=== PATIENT | male | born 1945 | race Caucasian/White ===

== ENCOUNTER 2024-07-11 23:26 | Inpatient (IN) | payer OTHER, MEDICARE ==
[~2024-07-11] VITALS: Ht 175.3 cm; Wt 100.0 kg
[~2024-07-11 23:26] MED LIST: AMI200T PO; ASPI-612 PO; COR3.125T PO; GEMF600T89 PO; HYDR12.522 PO; LEVA15HF4 IH; MULT-1062 PO; NIAC1CAP PO; NICO-687 TD; NITR0.4T51 SL; OMEG-72 PO; VITA-293 PO; ZES5T PO
[2024-07-12] VITALS (8 sets, daily range): BP systolic 131–143; BP diastolic 68–74; PULSE 77–85; RESP 16–24; TEMP 97.7–98.3; O2SAT 98
[2024-07-12] MEDS: amiodarone/D5 360MG/200ML BAG 200 ML IV SCH (00:54)
[2024-07-12 01:00] LABS: BASOPHILS % (AUTO) 0.2 % (0-1); EOSINOPHILS % (AUTO) 0.2 % (0-6); HEMATOCRIT 31.3 % (42.0-52.0); HEMOGLOBIN 10.4 g/dl (14.0-17.9); LYMPHOCYTES # (AUTO) 1.1 X10'3 (1.1-4.8); LYMPHOCYTES % (AUTO) 9.2 % (21-51); MEAN CORPUSCULAR HEMOGLOBIN 32.5 PG (27.0-31.0); MEAN CORPUSCULAR HGB CONC 33.1 g/dL (33.0-36.5); MEAN PLATELET VOLUME 9.6 FL (7.4-10.4); MONOCYTES # (AUTO) 1.3 X10'3 (0-0.9); MONOCYTES % (AUTO) 11.1 % (2-12); NEUTROPHILS # (AUTO) 9.2 X10'3 (1.8-7.7); NEUTROPHILS % (AUTO) 79.3 % (42-75); PLATELET COUNT 138 X10'3 (140-440); RED CELL DISTRIBUTION WIDTH 14.6 % (11.5-14.5); WHITE BLOOD COUNT 11.6 X10'3 (4.5-11.0)
[2024-07-12 01:20] LABS: ALBUMIN 2.7 G/DL (3.4-5.0); ANION GAP 10 (8-16); BLOOD UREA NITROGEN 47 MG/DL (7-18); BUN/CREATININE RATIO 18.4 (10.0-20.0); CALCIUM 9.3 MG/DL (8.5-10.1); CHLORIDE 103 MMOL/L (99-107); CREATININE 2.55 MG/DL (0.60-1.10); GLUCOSE 229 MG/DL (70-104); MAGNESIUM 2.2 MG/DL (1.5-2.4); POTASSIUM 3.9 MMOL/L (3.5-5.1); PRO BRAIN NATRIURETIC PEPTIDE 7207 PG/ML (0-450); SODIUM 136 MMOL/L (135-145); TOTAL CARBON DIOXIDE 23.5 MMOL/L (24-32); eCRCL 24 ML/MIN; eGFR 25 ML/MIN
[2024-07-12] MEDS: acetaminophen 1,000mg/100ml IV 100 ML IV ONE (03:30)
[2024-07-12] MEDS ORDERED: mag hydrox/Alum hydrox/simeth 30ml oral suspension PO PRN (04:10)
[2024-07-12] MEDS ORDERED: ondansetron/PF 4mg/2ml inj IV PRN (04:10)
[2024-07-12] MEDS ORDERED: magnesium hydroxide 30ml (MOM) UD suspension PO PRN (04:10)
[2024-07-12] MEDS ORDERED: potassium Cl 40MEQ/1/2NS 520ml 520 ML IV PRN (04:10)
[2024-07-12] MEDS ORDERED: magnesium Cl slow-release 64mg tablet PO PRN (04:10)
[2024-07-12] MEDS ORDERED: acetaminophen 325mg tablet PO PRN (04:10)
[2024-07-12] MEDS ORDERED: magnesium sulf-water 2g/50mL 50 ML IV PRN (04:10)
[2024-07-12] MEDS ORDERED: magnesium sulf-water 4G/100mL 100 ML IV PRN (04:10)
[2024-07-12] MEDS ORDERED: potassium Cl 20 mEq SR tablet PO PRN ×2 (04:10)
[2024-07-12] MEDS ORDERED: dextrose 50%-water 50ml dispensing syringe IV PRN ×2 (05:00)
[2024-07-12] MEDS ORDERED: glucagon, human recombinant 1mg kit SUBCUT PRN (05:00)
[2024-07-12] MEDS ORDERED: DEXTROSE 15 GM of carb/4 tabs (each vial/BOTTLE has 4 tablets) PO PRN ×2 (05:00)
[2024-07-12] MEDS ORDERED: albuterol 2.5 MG/3 ML nebule NEB PRN (05:00)
[2024-07-12 05:07] LABS: APTT 34 SECONDS (22-32); INR 1.1 INR; PROTHROMBIN TIME 11.3 SECONDS (9.0-12.0)
[2024-07-12 05:08] LABS: HEMOGLOBIN A1C 8.4 % (4.5-6.2)
[2024-07-12] MEDS: K and/or MAG REPLACEMENT MC SCH (08:00)
[2024-07-12] MEDS: docusate sod 100mg capsule PO SCH (08:00)
[2024-07-12 08:42] LABS: SODIUM,URINE RANDOM 23 MEQ/L; URINE AMPHETAMINE SCREEN NEGATIVE (Neg); URINE BARBITUATE SCREEN NEGATIVE (Neg); URINE BENZODIAZEPINES SCREEN NEGATIVE (Neg); URINE CANNABINOID SCREEN NEGATIVE (Neg); URINE COCAINE SCREEN NEGATIVE (Neg); URINE METHADONE SCREEN NEGATIVE (Neg); URINE OPIATE SCREEN NEGATIVE (Neg); URINE PHENCYCLIDINE SCREEN NEGATIVE (Neg)
[2024-07-12 08:48] LABS: OSMOLALITY UA 285 MOSM/K (50-1400)
[2024-07-12 08:49] LABS: OSMOLALITY 305 MOSM/K (280-300)
[2024-07-12] MEDS: INSULIN LISPRO 100 UNIT/ML INSULN.PEN MULTI-DOSE SQ SCH (09:30)
[2024-07-12 09:45] LABS: % IRON SATURATION 9 % (11-46); IRON 18 UG/DL (53-167); TOTAL IRON BINDING CAPACITY 204 UG/DL (259-388)
[2024-07-12 09:45] LABS: BILIRUBIN,URINE NEGATIVE (Neg); CLARITY,URINE CLEAR (Clear); COLOR,URINE YELLOW (Yellow); GLUCOSE, URINE NEGATIVE (Neg); KETONES,URINE NEGATIVE (Neg); LEUKOCYTE ESTERASE ,URINE NEGATIVE (Neg); NITRITES, URINE NEGATIVE (Neg); OCCULT BLOOD,URINE NEGATIVE (Neg); PH,URINE 5.5 (4.8-8.0); PROTEIN,URINE NEGATIVE (Neg); UROBILINOGEN,URINE 0.2 E.U/dL (0.2-1.0)
[2024-07-12 09:55] LABS: UA COLLECTION TYPE URINAL
[2024-07-12] MEDS: benzonatate 100mg capsule PO ONE (11:08)
[2024-07-12 13:21] LABS: ETHANOL < 10 MG/DL (<10)
[2024-07-12] MEDS: guaiFENesin 200 MG/10 ML oral syrup UD cup PO SCH (15:43)
[2024-07-12 16:19] LABS: ALANINE AMINOTRANSFERASE 25 U/L (12-78); ALBUMIN 2.9 G/DL (3.4-5.0); ALBUMIN/GLOBULIN RATIO 0.7 (1.1-1.5); ALKALINE PHOSPHATASE 105 IU/L (46-116); ASPARTATE AMINO TRANSFERASE 19 U/L (10-37); BILIRUBIN,DIRECT 0.2 MG/DL (0-0.3); BILIRUBIN,TOTAL 0.5 MG/DL (0.1-1.0)
[2024-07-12] MEDS: amiodarone 200mg tablet PO SCH (16:23)
[2024-07-12] MEDS: ipratropium/albuterol 3ml nebule NEB PRN (19:58)
[2024-07-12] MEDS: carVEDilol 3.125mg tablet PO SCH (21:10)
[2024-07-12] MEDS: apixaban 5mg tablet PO SCH (21:10)
[2024-07-12] MEDS: insulin glargine (Lantus) pen - multi-dose SQ SCH (21:18)
[2024-07-12] MEDS ORDERED: LEVO75TA PO (21:43)
[2024-07-12] MEDS ORDERED: APIX5TAB3 PO (21:43)
[2024-07-12] MEDS ORDERED: THIA50TA10 PO (21:43)
[2024-07-12] MEDS ORDERED: GLIP5TAB23 PO ×2 (21:47)
[2024-07-12] MEDS ORDERED: SEMA1PEN3 SUBCUT (21:47)
[2024-07-13] VITALS (14 sets, daily range): BP systolic 107–136; BP diastolic 45–70; PULSE 61–82; RESP 17–28; TEMP 97.2–98.6; O2SAT 95–99
[2024-07-13 07:11] LABS: BASOPHILS # (AUTO) 0.1 X10'3 (0-0.2); BASOPHILS % (AUTO) 0.5 % (0-1); EOSINOPHILS # (AUTO) 0.2 X10'3 (0-0.9); EOSINOPHILS % (AUTO) 2.1 % (0-6); HEMOGLOBIN 9.5 g/dl (14.0-17.9); LYMPHOCYTES # (AUTO) 0.9 X10'3 (1.1-4.8); LYMPHOCYTES % (AUTO) 9.6 % (21-51); MEAN CORPUSCULAR HGB CONC 33.9 g/dL (33.0-36.5); MEAN CORPUSCULAR VOLUME 97.4 FL (78-98); MEAN PLATELET VOLUME 9.3 FL (7.4-10.4); MONOCYTES % (AUTO) 10.8 % (2-12); NEUTROPHILS # (AUTO) 7.5 X10'3 (1.8-7.7); PLATELET COUNT 135 X10'3 (140-440); RED BLOOD COUNT 2.88 X10'6 (4.70-6.10); RED CELL DISTRIBUTION WIDTH 14.7 % (11.5-14.5); WHITE BLOOD COUNT 9.7 X10'3 (4.5-11.0)
[2024-07-13 07:41] LABS: ALBUMIN 2.6 G/DL (3.4-5.0); ANION GAP 14 (8-16); BLOOD UREA NITROGEN 44 MG/DL (7-18); BUN/CREATININE RATIO 21.2 (10.0-20.0); CALCIUM 9.4 MG/DL (8.5-10.1); CHLORIDE 104 MMOL/L (99-107); CHOL/HDL RATIO 2.9 (0.00-4.99); CHOLESTEROL 98 MG/DL (0-200); CREATININE 2.08 MG/DL (0.60-1.10); GLUCOSE 153 MG/DL (70-104); HDL CHOLESTEROL 34 MG/DL (35-60); LDL CHOLESTEROL 45 MG/DL (50-100); POTASSIUM 3.9 MMOL/L (3.5-5.1); PRO BRAIN NATRIURETIC PEPTIDE 7306 PG/ML (0-450); SODIUM 138 MMOL/L (135-145); TOTAL CARBON DIOXIDE 20.5 MMOL/L (24-32); TRIGLYCERIDES 166 MG/DL (20-135); eCRCL 29 ML/MIN; eGFR 31 ML/MIN
[2024-07-13] MEDS: INSULIN LISPRO 100 UNIT/ML INSULN.PEN MULTI-DOSE SQ SCH (09:07)
[2024-07-13] MEDS: aspirin 81mg, enteric-coated 1 TAB TABLET.DR PO SCH (09:09)
[2024-07-13] MEDS: levoTHYROXINE 75mcg tablet PO SCH (09:09)
[2024-07-13] MEDS: nystatin/triamcinolone cream 15gm TP SCH (10:45)
[2024-07-13] MEDS ORDERED: INSULIN LISPRO 100 UNIT/ML INSULN.PEN MULTI-DOSE SQ SCH (12:00)
[2024-07-13] MEDS ORDERED: albuterol 1.25 MG/3 ML (1/2 strength) nebule NEB PRN (12:10)
[2024-07-13] MEDS: lactose-reduced food (Ensure Enlive) - 237ml bottle PO SCH (13:00)
[2024-07-13] MEDS: azithromycin 250mg tablet PO SCH (13:40)
[2024-07-13] MEDS: methylPREDNISolone sod succ 125mg/2ml vial IV ONE (13:40)
[2024-07-13] MEDS: furosemide 20 MG/2 ML vial IV SCH (13:41)
[2024-07-13] MEDS: CefTRIAXone/D5W-Rocephin 1gm 50 ML IV SCH (13:45)
[2024-07-13] MEDS: ipratropium/albuterol 3ml nebule NEB SCH (17:49)
[2024-07-13] MEDS: OMEGA-3/DHA/EPA/FISH OIL 1 EACH CAPSULE.DR PO SCH (19:47)
[2024-07-13] MEDS: methylPREDNISolone sod succ/PF 40mg inj. IV SCH (19:48)
[2024-07-13] MEDS ORDERED: VIT C NO 3 PO SCH (20:00)
[2024-07-13] MEDS ORDERED: VITAMIN B COMPLEX PO SCH (20:00)
[2024-07-13] MEDS: insulin glargine (Lantus) pen - multi-dose SQ SCH (21:29)
[2024-07-14] VITALS (12 sets, daily range): BP systolic 104–122; BP diastolic 46–52; PULSE 63–79; RESP 16–20; TEMP 97.7–98; O2SAT 94–98
[2024-07-14] MEDS: nystatin 15 GM powder TP SCH (07:38)
[2024-07-14] MEDS ORDERED: THIAMINE HCL PO SCH (08:00)
[2024-07-14 08:01] LABS: BASOPHILS % (AUTO) 0.1 % (0-1); EOSINOPHILS % (AUTO) 0 % (0-6); HEMATOCRIT 30.8 % (42.0-52.0); HEMOGLOBIN 10.3 g/dl (14.0-17.9); LYMPHOCYTES # (AUTO) 0.5 X10'3 (1.1-4.8); LYMPHOCYTES % (AUTO) 5.5 % (21-51); MEAN CORPUSCULAR HEMOGLOBIN 32.5 PG (27.0-31.0); MEAN CORPUSCULAR HGB CONC 33.4 g/dL (33.0-36.5); MEAN CORPUSCULAR VOLUME 97.3 FL (78-98); MEAN PLATELET VOLUME 9.3 FL (7.4-10.4); MONOCYTES # (AUTO) 0.1 X10'3 (0-0.9); MONOCYTES % (AUTO) 1.8 % (2-12); NEUTROPHILS # (AUTO) 7.9 X10'3 (1.8-7.7); NEUTROPHILS % (AUTO) 92.6 % (42-75); PLATELET COUNT 194 X10'3 (140-440); RED BLOOD COUNT 3.17 X10'6 (4.70-6.10); RED CELL DISTRIBUTION WIDTH 14.8 % (11.5-14.5); WHITE BLOOD COUNT 8.5 X10'3 (4.5-11.0)
[2024-07-14 08:26] LABS: ALBUMIN 2.6 G/DL (3.4-5.0); ANION GAP 15 (8-16); BLOOD UREA NITROGEN 61 MG/DL (7-18); BUN/CREATININE RATIO 26.8 (10.0-20.0); CALCIUM 9.9 MG/DL (8.5-10.1); CHLORIDE 104 MMOL/L (99-107); CREATININE 2.28 MG/DL (0.60-1.10); GLUCOSE 245 MG/DL (70-104); POTASSIUM 4.2 MMOL/L (3.5-5.1); SODIUM 138 MMOL/L (135-145); TOTAL CARBON DIOXIDE 19.3 MMOL/L (24-32); eCRCL 27 ML/MIN; eGFR 28 ML/MIN
[2024-07-14] MEDS ORDERED: AMIO400T5 PO (10:34)
[2024-07-14] MEDS ORDERED: LACT1CAP26 PO (10:34)
[2024-07-14] MEDS ORDERED: FURO20TA4 PO (10:34)
[2024-07-14] MEDS ORDERED: CEFD300C3 PO (10:34)
[2024-07-14] MEDS ORDERED: AZIT500T9 PO (10:34)
[2024-07-14] MEDS ORDERED: PRED10TA23 PO ×2 (11:21→12:43)
[2024-07-14] MEDS ORDERED: HYDR12.55 PO (12:45)
[2024-07-14] MEDS ORDERED: LISI2.5T14 PO (12:45)
== END 2024-07-14 15:50 | disposition home health service (06) | DRG 308 ==
LOC: ER 23:27 → ED HOLD 07-12 04:11 → EDBEDREQ 07-12 09:00 → PCU 3S 07-12 16:45
PROVIDERS: ADMIT Internal Medicine Sleep Medicine; ATTEND Family Medicine
DX: I47.20 Ventricular tachycardia, unspecified (principal); N17.0 Acute kidney failure with tubular necrosis; J44.1 Chronic obstructive pulmonary disease with (acute) exacerbation; I50.20 Unspecified systolic (congestive) heart failure; I42.0 Dilated cardiomyopathy; I11.0 Hypertensive heart disease with heart failure; E11.9 Type 2 diabetes mellitus without complications; E78.5 Hyperlipidemia, unspecified; F17.210 Nicotine dependence, cigarettes, uncomplicated; R10.30 Lower abdominal pain, unspecified; D64.9 Anemia, unspecified; E03.9 Hypothyroidism, unspecified; Z79.899 Other long term (current) drug therapy; Z95.0 Presence of cardiac pacemaker
CPT/HCPCS: 36415; 71045; 80048; 80061; 80076; 80305; 80320; 81003; 82570; 82948; 83036; 83540; 83550; 83605; 83735; 83880; 83930; 83935; 84145; 84300; 84439; 84443; 84484; 85025; 85610; 85730; 87040; 87081; 87207; 93005; 93306; 94640; 94760; 97116; 97161; 97530; 99291; A4620; A6212; A6222; G0378; J0131; J0282; J0696; J1815; J1940; J2919